=== PATIENT | female | born 1940 | race Caucasian/White ===

== ENCOUNTER → 2017-01-26 | Outpatient (CLI) | payer MEDICARE, BC ==
[~2017-01-26] MED LIST: AMLO5TAB22 PO; ASPI81TA11 PO; EFFE150C PO; MIRA25TA PO; NITR-29 PO; SIMV10TA PO; ULTR50TA PO; VITA400C28 PO; ZANT150T2 PO
--- NOTE | 2017-02-01 09:04 | RSPPFT ---
DATE OF PROCEDURE: 01/26/17 COMMENTS: Spirometry with FVC of 2.2, FEV1 of 1.6, FEV1/FVC ratio at 72%. Slow vital capacity at 63% of predicted. TLC is 89%. Diffusion capacity is 56% of predicted and normal when corrected for alveolar volume. IMPRESSION: 1. Moderately severe airways obstruction. 2. No evidence of airways restriction. 3. Reduced diffusion capacity but normal when corrected for alveolar volume. 4. Non-significant response to acutely inhaled bronchodilator.
== END ==
LOC: HRSP 12:42
PROVIDERS: ATTEND Internal Medicine Cardiovascular Disease
DX: R06.02 Shortness of breath (principal)
CPT/HCPCS: 94060; 94726; 94729